=== PATIENT | male | born 1990 | race Caucasian/White ===

== ENCOUNTER 2019-05-26 12:29 | Emergency (ER) | payer OTHER ==
[~2019-05-26] VITALS: Ht 162.6 cm; Wt 85.3 kg
[2019-05-26 12:35] VITALS: Ht 162.6 cm; Wt 85.3 kg
[2019-05-26 13:30] VITALS: BP 148/82
== END 2019-05-26 13:30 | disposition home or self-care (01) ==
LOC: ED 12:29
DX: S92.901A Unspecified fracture of right foot, initial encounter for closed fracture (principal); V43.52XA Car driver injured in collision with other type car in traffic accident, initial encounter; Y93.I9 Activity, other involving external motion; Y92.413 State road as the place of occurrence of the external cause; Y99.8 Other external cause status